=== PATIENT | male | born 1950 | race Caucasian/White ===

== ENCOUNTER 2021-09-27 19:15 | Emergency (ER) | payer MEDICARE ==
[2021-09-27 20:32] LABS: HEMOGLOBIN 13.7 gm/dl (14.0-17.5); RED BLOOD COUNT 4.39 M/UL (4.20-5.50); WHITE BLOOD COUNT 7.2 K/UL (4.5-11.0)
[2021-09-27 20:53] LABS: BUN/CREATININE RATIO 20 (0-10)
[2021-09-27] MEDS ORDERED: ZOFRAN 4 MG TAB4 MG PO (22:13)
[2021-09-27] MEDS ORDERED: HYDROCODON-ACE1 EAC4 PO (22:13)
== END 2021-09-27 23:56 | disposition home or self-care (01) ==
LOC: ER1 19:15
PROVIDERS: Preventive Medicine Occupational Medicine
DX: N13.2 Hydronephrosis with renal and ureteral calculous obstruction (principal); Z20.822 Contact with and (suspected) exposure to COVID-19; E11.9 Type 2 diabetes mellitus without complications
CPT/HCPCS: 71045; 80053; 81001; 82550; 82553; 83605; 83690; 83880; 84484; 85025; 85652; 86140; 87086; 93005; 96374; 96375; 99284; J1170; J1885; J2405; Q9967; U0002